=== PATIENT | female | born 1950 | race Caucasian/White ===

== ENCOUNTER 2025-06-28 15:00 | Emergency (ER) | payer SELFPAY ==
[2025-06-28 15:23] VITALS: BP 188/100
--- NOTE | 2025-06-28 16:51 | ED.GENMED ---
History of Present Illness
<MARICARMEN Allison Last Filed: 06/28/25 20:03>
General
Chief Complaint: Fall
Source: patient
Exam Limitations: none
Time Seen by Provider: 06/28/25 16:29
Nursing documentation reviewed up to this point in time: agreed with
History of Present Illness
History of Present Illness:
see MDM
Review of Systems
<MARICARMEN Allison Last Filed: 06/28/25 20:03>
Review of Systems
Allergies reviewed?: Yes
All Other Systems: Not applicable
Phy Exam
<MARICARMEN Allison Last Filed: 06/28/25 20:03>
Physical Exam
Physical Exam:
GENERAL: Alert , in no apparent distress
HEAD: signficant hematoma to forehead with lacerations/stellate wound with gravel embedded in the wound, multiple flaps, some bruised macerated tissue surrounding it,
NECK: no midline tenderness, active ROM intact, no paraspinal muscle tenderness;
EYE: pupils equal and reactive, EOMs intact.
ENT: o/p clr, mmm. no hemotympanum
CARDIAC: Regular rate and rhythm, no edema
LUNGS: Clear breath sounds bilaterally, no acute respiratory distress, no wheezes/rales/rhonchi
ABDOMEN: Soft, without focal tenderness, no r/g, no cvat
NEUROLOGICAL: Alert and oriented, no focal neuro deficits, CN intact, 5/5 strength, sensation intact, finger to nose normal
SKIN: Warm and dry, stellate laceration, deep in some parts to galea
approx 8 cm total
MUSCULOSKELETAL: No edema, well perfused.
PSYCH: Normal and appropriate interaction.
Course
<MARICARMEN Allison Last Filed: 06/28/25 20:03>
Orders/Labs/Results
Orders:
Orders
06/28/25 15:36
CT Head W/o Iv Contrast Urgent
Comment: no thinners
Reason For Exam: fall hit forehead on gravel
06/28/25 16:53
Acetaminophen [Tylenol] 650 mg PO NOW STA
Tetanus/Diphth/Acelpertussis [Adacel] 0.5 ml IM .ONCE ONE
06/28/25 19:37
Acetaminophen [Tylenol] 650 mg .ROUTE .STK-MED ONE
Tetanus/Diphth/Acelpertussis [Adacel] 0.5 ml .ROUTE .STK-MED ONE
06/28/25 19:50
Tetanus/Diphth/Acelpertussis [Adacel] 0.5 ml .ROUTE .STK-MED ONE
Vital Signs
Initial and Last Documented VS:
Initial Vital Signs
Temp Pulse Resp BP Pulse Ox
36.9 C 76 16 188/100 98
06/28/25 15:23 06/28/25 15:23 06/28/25 15:23 06/28/25 15:23 06/28/25 15:23
Last Documented Vital Signs
Temp Pulse Resp BP Pulse Ox
36.9 C 76 16 173/81 99
06/28/25 15:23 06/28/25 19:04 06/28/25 15:23 06/28/25 19:04 06/28/25 19:04
<Mathew Amado, DO - Last Filed: 06/28/25 17:18>
Orders/Labs/Results
Orders:
Orders
06/28/25 15:36
CT Head W/o Iv Contrast Urgent
Comment: no thinners
Reason For Exam: fall hit forehead on gravel
06/28/25 16:53
Acetaminophen [Tylenol] 650 mg PO NOW STA
Tetanus/Diphth/Acelpertussis [Adacel] 0.5 ml IM .ONCE ONE
06/28/25 19:37
Acetaminophen [Tylenol] 650 mg .ROUTE .STK-MED ONE
Tetanus/Diphth/Acelpertussis [Adacel] 0.5 ml .ROUTE .STK-MED ONE
06/28/25 19:50
Tetanus/Diphth/Acelpertussis [Adacel] 0.5 ml .ROUTE .STK-MED ONE
Vital Signs
Initial and Last Documented VS:
Initial Vital Signs
Temp Pulse Resp BP Pulse Ox
36.9 C 76 16 188/100 98
06/28/25 15:23 06/28/25 15:23 06/28/25 15:23 06/28/25 15:23 06/28/25 15:23
Last Documented Vital Signs
Temp Pulse Resp BP Pulse Ox
36.9 C 76 16 173/81 99
06/28/25 15:23 06/28/25 19:04 06/28/25 15:23 06/28/25 19:04 06/28/25 19:04
Procedures
<Susie Baugh PA-C - Last Filed: 06/28/25 20:03>
Laceration Closure
Forehead:
Status of Wound: dirty
Size of Wound in cm: 8
Description of Wound Edges: ragged, surrounded by abrasion and macerated
Preparation: cleaned with saline
Anesthesia: 1% Lidocaine with epi
Revision/Debridement: minor revision, debrided and irrigate-direct pressure
Wound exploration: extensive cleaning of contaminated wound (most gravel removed)
Type of Closure: layered closure
Skin Closure Material: 6-0 nylon (14) and 5-0 vicryl (3)
Number of sutures: 17
<Susie Baugh PA-C - Last Filed: 06/28/25 20:03>
MDM/Problems Addressed
Differential Diagnosis Includes:
see MDM
MDM/Problems Addressed:
Note:
CHIEF COMPLAINT(S)
The patient presents with a large forehead laceration following a fall.
HISTORY OF PRESENT ILLNESS
The patient is a 74-year-old female who sustained a fall approximately 2 pm prior to arriving at the emergency department. She reports tripping over the fork of a forklift in a gravel parking lot, resulting in a fall that caused a laceration on her
forehead. The patient denies any loss of consciousness during the incident and was able to get up on her own. She reports developing a headache since the fall but denies nausea, neck pain, or any neurological symptoms, including balance issues or
confusion. The patient describes a past history of breaking her nose, but she experiences no neck tenderness currently.
The patient is on a daily aspirin regimen and states that she has not received a tetanus vaccine in recent memory. A computed tomography scan of her head has been performed, but the report is pending at the time of examination.
PAST MEDICAL HISTORY
The patient takes baby aspirin daily.
PHYSICAL EXAM
- General: Patient is alert and oriented, cooperative with exam.
- Head: Laceration present on the forehead with gravel embedded in the wound.
- Neurological: No focal weakness. Cranial nerves II-XII are intact. Coordination tests, including [id number], were normal.
Nursing notes reviewed and vital signs reviewed.
PLAN
1. Wound Management: The laceration will be cleaned thoroughly after local anesthesia is applied, and gravel will be removed. Stitches may be necessary depending on the wounds appearance after cleaning.
2. Tetanus Prophylaxis: Administer a tetanus vaccine due to the nature of the injury.
3. Symptomatic Treatment: Administer acetaminophen for headache relief.
4. Observation and Follow-up: Continue to monitor neurological status as CT scan results are awaited.
DIFFERENTIAL DIAGNOSIS
The Differential Diagnosis includes, in no particular order and is not limited to:
1. Traumatic head injury
2. Scalp laceration
3. Concussion
4. Tension-type headache
5. Contusion
6. Abrasion with foreign body
7. Soft tissue infection
8. Vestibular dysfunction
9. Epistaxis from possible nasal injury
10. Intracranial hemorrhage (pending CT results)
74 y/o F mechanical trip an dfall with forehead strike, no LOC, no thinners, no change in mental status
with significant hematoma to forehead and laceration with gravel
tetanus not up to date
\\neuro intact, no anticoagulation,
ct head neg
obvious hematoma
gravel within the wound
required extensive irrigation and repair
2 layer closure
will give abx rx
required > 1 hour with patient to debride wound
dc home
<Susie Baugh PA-C - Last Filed: 06/28/25 20:03>
*Pulse Oximetry
SaO2: 98
Oxygen Mode of Delivery: Room air
Patient hypoxic: no (99)
*Critical Care Note
Total Time (30-74mins, 75-104mins- exclusive of procedures): Not Applicable
ED Attending Note
<Susie Baugh PA-C - Last Filed: 06/28/25 20:03>
-
Portions of this chart may have been created with voice recognition software.� Occasional wrong word or��sound alike� substitutions may have occurred due to the inherent limitations of voice recognition software.
<Mathew Amado DO - Last Filed: 06/28/25 17:18>
ED Attending Note
Patient seen and examined by attending physician: Yes
I performed the substantive portion of visit, reviewed & personally made and approve the management plan that is documented in note by myself or SOUMYA.: Yes
Discharge Plan
Departure
Patient Disposition: Home (Routine Discharge)
Date of Disposition: 06/28/25
Time of Disposition: 19:01
Patient with high blood pressure during this ER visit?: Yes
Condition: Fair
Covid-19: Not Applicable
Discharge Problem:
Complex laceration of face, Hematoma, Fall
Instructions: Wound Care (DC), Head Injury in Adults (DC), Laceration Repair With Stitches (DC), BLOOD PRESSURE
Prescriptions:
New
cephalexin 500 mg capsule
500 mg PO TID 7 Days Qty: 21 0RF
Referrals:
Shaquille Harrison MD [Family Provider, Internal Medicine] - Follow up in 1 week
Activity Restrictions/Additional Instructions:
KEEP THE WOUND CLEAN AND DRY FOR 24 HOURS
AFTER THAT YOU CAN GET IT WET IN THE BATH/SHOWER ONCE A DAY AND MAKE SURE IT IS CLEAN AND THERE IS NO DRIED BLOOD ON THE STITCHES
APPLY vasoline AND A BANDAID UNLES YOU WILL BE HOME AND CAN LEAVE IT OPEN THAT'S FINE
THE STITCHES NEED TO BE REMOVED IN ABOUT 7-10 DAYS, SEE YOUR DOCTOR FOR THIS.
THE LAST DAY BEFORE STITCHES OUT, NO OINTMENT, LEAVE OPEN TO AIR
WATCH FOR SIGNS OF INFECTION AND RETURN NEEDED FOR PAIN, SWELLING, REDNESS, DRAINAGE, BLEEDING.
TYLENOL NEEDED FOR PAIN.
TAKE KEFLEX 3 TIMES A DAY TO PREVENT INFECTION
Interventions
Interventions:
*General Assessment Last Done: 06/28/25 15:23
*Neglect/Abuse Screening Last Done: 06/28/25 15:23
*ED COVID-19 Vaccine History Last Done: 06/28/25 15:23
*ED Influenza Vaccine History Last Done: 06/28/25 15:23
*Risk Screen - Suicide (C-SSRS) Last Done: 06/28/25 15:23
*Nursing Disposition Last Done: 06/28/25 19:52
ED-Musculoskeletal Assessment Last Done: 06/28/25 16:41
ED- Neurological Assessment Last Done: 06/28/25 16:41
ED-Skin Assessment Last Done: 06/28/25 19:52
Discharge Date and Time
Discharge Date/Time: 06/28/25 19:53
Print Language: UGANDAN
[2025-06-28 19:04] VITALS: BP 173/81
[2025-06-28] MEDS: ADACEL 0.5 ML IM (19:46)
[2025-06-28] MEDS: TYLENOL 650 MG PO (19:47)
== END 2025-06-28 19:53 | disposition home or self-care (01) ==
LOC: EMR 15:00
PROVIDERS: EMERGENCY PHYSICIAN Emergency Medicine; FAMILY PHYSICIAN Internal Medicine
DX: S01.82XA Laceration with foreign body of other part of head, initial encounter (principal); W18.09XA Striking against other object with subsequent fall, initial encounter; Y92.481 Parking lot as the place of occurrence of the external cause; R03.0 Elevated blood-pressure reading, without diagnosis of hypertension; Z23 Encounter for immunization; Z79.82 Long term (current) use of aspirin
CPT/HCPCS: 99284; 12054; 90471; 70450; 90715